=== PATIENT | female | born 1950 | race Caucasian/White ===

== ENCOUNTER 2017-05-25 08:14 | Day surgery (SDC) | payer OTHER ==
[~2017-05-25] VITALS: Ht 152.4 cm; Wt 64.4 kg
[2017-05-25 09:01] VITALS: Ht 152.4 cm; Wt 64.4 kg
[2017-05-25] MEDS ORDERED: LISI10TA2 PO (09:08)
[2017-05-25] MEDS ORDERED: ASPI-535 PO (09:08)
[2017-05-25] MEDS ORDERED: OMEPRAZOLE PO (09:08)
[2017-05-25 09:25] VITALS: BP 145/68; PULSE 65; RESP 14
--- NOTE | 2017-05-25 10:34 | OPPN ---
Date/Time of Note Date/Time of Note DATE: 05/25/17 TIME: 10:33 Operative Report Preoperative Diagnosis Screening Postoperative Diagnosis Adhesions on sigmoid colon Incomplete colonoscopy Diverticulosis of the colon Internal hemorrhoids Operation/Procedure Performed Colonoscopy Surgeon see signature line case management assistant None Anesthesia: moderate sedation Estimated blood loss: none Transfusion Required none Specimen None Grafts/Implants none Complications none CARLOS POTTER MD May 25, 2017 10:34
[2017-05-25] MEDS ORDERED: MIDAZOLAM 1 MG/ML 2 ML INJ ONE (10:40)
[2017-05-25] MEDS ORDERED: FENTAnyl 50 MCG/ML VIAL ONE (10:40)
--- NOTE | 2017-05-25 12:03 | GILP ---
DATE OF PROCEDURE: NAME OF PROCEDURE: Colonoscopy. SURGEON: Carlos Floyd MD PREOPERATIVE DIAGNOSIS: Screening. POSTOPERATIVE DIAGNOSES: 1. Adhesions on sigmoid colon. 2. Diverticulosis of the colon. 3. Internal hemorrhoids. 4. Incomplete colonoscopy. INDICATION FOR THE PROCEDURE: Ms. Quiana Campoverde is a 66-year-old female patient who was scheduled f or screening colonoscopy. The procedure and possible complications are well explained to the patient. The patient understood and consented to the procedure. Under the influence of fentanyl and Versed, the colonoscope was carefully introduced in the rectum a nd under direct vision, it was advanced into the sigmoid colon. The patient had adhesions from prev ious hysterectomy and it was difficult to advance the colonoscope, so the scope was pulled out of th e patient's colon and upper endoscope was carefully inserted and under direct vision, it was advance d to the whole length of the scope. Because of the short length of the scope, the cecum could not b e reached. FINDINGS: The patient was noted to have diverticulosis of the colon and internal hemorrhoids. No c olon neoplasm was identified in the area of the colon examined. She tolerated the procedure very well and there were no complications from the procedure. At the en d of the procedures, she was awake with stable vital signs and she was discharged home to the care o f her family. IMPRESSION: 1. Adhesions from previous hysterectomy preventing the colonoscope to be advanced into the proximal part of the colon. 2. The upper endoscope was inserted and it was advanced to the whole length and because of the shor t length of the scope, the cecum could not be reached. 3. Diverticulosis of the colon. 4. Internal hemorrhoids. PLAN: Barium enema for the evaluation of the proximal part of the colon. Dictated By: CARLOS TOVAR/IRENA Conf#: [id number] DID#: [id number]
== END 2017-05-25 15:26 | disposition home or self-care (01) ==
LOC: GIL 08:14
PROVIDERS: ATTEND Internal Medicine Gastroenterology
DX: Z12.11 Encounter for screening for malignant neoplasm of colon (principal); K66.0 Peritoneal adhesions (postprocedural) (postinfection); K57.30 Diverticulosis of large intestine without perforation or abscess without bleeding; K64.8 Other hemorrhoids; Z90.710 Acquired absence of both cervix and uterus
CPT/HCPCS: 82962; J2250; J3010

== ENCOUNTER 2018-11-23 05:43 | Day surgery (SDC) | payer OTHER ==
[~2018-11-23] VITALS: Ht 162.6 cm; Wt 67.5 kg
[~2018-11-23 05:43] MED LIST: ASPI81TA52 PO; ATOR20TA38 PO; LISI10TA2 PO; METF100010 PO; OMEP20CA16 PO
[2018-11-23 06:44] VITALS: Ht 162.6 cm; Wt 67.5 kg
[2018-11-23] MEDS ORDERED: ATENOLOL (06:52)
[2018-11-23 07:03] VITALS: BP 103/75; PULSE 69; RESP 14
[2018-11-23] MEDS ORDERED: MIDAZOLAM 1 MG/ML 2 ML INJ ONE (08:00)
[2018-11-23] MEDS ORDERED: FENTAnyl 50 MCG/ML VIAL ONE ×2 (08:00→08:01)
--- NOTE | 2018-11-23 09:58 | CONS ---
DATE OF ADMISSION: 11/23/2018 DATE OF CONSULTATION: PATIENT NAME: DOM VEGA TYPE OF CONSULTATION: Preoperative gastroenterology. Dear Dr. Stroud: I thank you very much for this kind referral. HISTORY OF PRESENT ILLNESS: Ms. Dom Campoverde is a 68-year-old female patient who has been referred to me for further evaluation of upper abdominal pain and chronic heartburn, not responding to therapy with omeprazole. No past history of peptic ulcer disease. The patient has been taking baby aspirin a day. Appetite is good. No weight loss. No history of gallstones or liver disease. The patient has noticed a change in the bowel habit. The patient underwent colonoscopy 2 years ago and because o f adhesions from previous hysterectomy, complete colonoscopy could not be done. The patient was give n a prescription for barium enema but she never had one. PAST MEDICAL HISTORY: She is hypertensive. She has diabetes. No heart disease, lung problem or kid chester disease. Has hyperlipidemia, status post hysterectomy. SOCIAL HISTORY: Nonsmoker. No alcohol abuse. FAMILY HISTORY: No family history of gastrointestinal tract neoplasm. ALLERGIES: NO DRUG ALLERGIES. MEDICATIONS: 1. Omeprazole. 2. Lisinopril. 3. Atenolol. 4. Metformin. 5. Atorvastatin. 6. Aspirin 81 mg. PHYSICAL EXAMINATION: VITAL SIGNS: She is 5 feet, 4 inches tall and weighs 145 pounds. HEART: Normal heart sounds. LUNGS: Clear. ABDOMEN: Soft. No masses. Normal bowel sounds. NEUROLOGIC: Normal. IMPRESSION: 1. Upper abdominal pain and chronic heartburn, not responding to therapy with omeprazole. 2. The patient is on baby aspirin a day. 3. Change in the bowel habit. 4. The patient had colonoscopy 2 years ago and the exam was incomplete because of adhesions from pre vious hysterectomy. 5. The patient was given a prescription for barium enema, but she never had it done. The barium luisa ma was for evaluation of the proximal part of the colon. 6. Hypertension. 7. Diabetes mellitus. 8. Hyperlipidemia. 9. Status post hysterectomy. PLAN: 1. Endoscopy for further evaluation of upper abdominal pain and chronic heartburn. 2. Barium enema for the evaluation of the proximal part of the colon. The procedure and possible complications are well explained to the patient. She understands and cons ents to the procedure. I thank you once again. With warmest personal regards, Dictated By: CARLOS TOVAR/IRENA Conf#: [id number] DID#: [id number]
== END 2018-11-23 12:26 | disposition home or self-care (01) ==
LOC: GIL 05:43
PROVIDERS: ATTEND Internal Medicine Gastroenterology
DX: K29.50 Unspecified chronic gastritis without bleeding (principal); K21.9 Gastro-esophageal reflux disease without esophagitis; I10 Essential (primary) hypertension; E11.9 Type 2 diabetes mellitus without complications; Z79.84 Long term (current) use of oral hypoglycemic drugs
CPT/HCPCS: 43239; 82962; 88305; 88312; J2250; J3010